=== PATIENT | male | born 1985 | race Caucasian/White ===

== ENCOUNTER 2021-07-17 16:22 | Emergency (ER) | payer SELFPAY ==
[2021-07-17] MEDS ORDERED: IBUPROFEN 200 MG TAB PO ONE (16:44)
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
[2021-07-17] MEDS ORDERED: AMOX/K CLAV 875 MG TAB ONE (17:58)
[2021-07-18 01:19] VITALS: BP 139/81; TEMP 98.4; O2SAT 98
== END 2021-07-17 17:59 | disposition home or self-care (01) ==
LOC: ER 16:22
DX: S02.40AA Malar fracture, right side, initial encounter for closed fracture (principal); S02.40CA Maxillary fracture, right side, initial encounter for closed fracture; S02.40EA Zygomatic fracture, right side, initial encounter for closed fracture; S00.83XA Contusion of other part of head, initial encounter; Y04.2XXA Assault by strike against or bumped into by another person, initial encounter; Y93.9 Activity, unspecified; Y92.9 Unspecified place or not applicable
CPT/HCPCS: 70450; 70486; 72125; 76377; 99283